=== PATIENT | female | born 1945 | race Caucasian/White ===

== ENCOUNTER → 2018-08-22 10:44 | Outpatient (CLI) | payer MEDICARE, OTHER, SELFPAY ==
--- NOTE | 2018-08-22 | DI.MG.S_ITS ---
BILATERAL DIGITAL SCREENING MAMMOGRAM 3D/2D WITH CAD: 08/22/2018 CLINICAL: Routine screening. Personal history of breast cancer. Comparison is made to exams dated: 07/24/2017 mammogram, 11/16/2016 mammogram, and 04/24/2016 mammogram - [facility]. The tissue of both breasts is heterogeneously dense. This may lower the sensitivity of mammography. Current study was also evaluated with a Computer Aided Detection (CAD) system. There are benign post operative findings in the left breast. There also are benign calcifications in both breasts. No significant masses, calcifications, or other findings are seen in either breast. There has been no significant interval change. IMPRESSION: There is no mammographic evidence of malignancy. A 1 year screening mammogram is recommended. This exam was interpreted at Station ID: [id number]. NOTE: For mammograms, a report in lay terms will be sent to the patient. Approximately 15% of breast malignancies will not be visualized mammographically. In the management of a palpable breast mass, a negative mammogram must not discourage biopsy of a clinically suspicious lesion. Electronically Signed By: Dakotah donahue/tad:08/22/2018 17:16:07 copy to: Tania Centeno letter sent: Normal Exam ACR BI-RADS Category 2: Benign Finding(s) 3342F
== END ==
PROVIDERS: Family Provider Surgery; PCP Family Medicine; Visit Provider Family Medicine
DX: Z12.31 Encounter for screening mammogram for malignant neoplasm of breast (principal); Z85.3 Personal history of malignant neoplasm of breast
CPT/HCPCS: 77063; 77067

== ENCOUNTER 2019-02-02 10:23 | Emergency (ER) | payer MEDICARE, OTHER, SELFPAY ==
[2019-02-02 10:40] VITALS: BP 144/72; PULSE 71; RESP 20; TEMP 36.8; O2SAT 95; BMI 37.9
[2019-02-02 11:05] VITALS: BP 129/69; PULSE 63; O2SAT 91
--- NOTE | 2019-02-02 11:22 | PC.NURSE ---
On Day 5 of Cipro for diverticulitis flair up. States the LLQ pain in abdomen has improved, but the pain in her right low back/hip has worsened. No point tenderness in the abdomen, bowel sounds are active, abdomen is soft. Diarrhea from diverticulitis is improving. Denies urinary symptoms. Having spasms in the right low back/hip area that cause some numbness in the right groin area intermittently. Walking with cane secondary to pain.
[2019-02-02 12:00] VITALS: BP 132/68
[2019-02-02 12:51] LABS: Add Manual Diff / Slide Review NO; Basophils Absolute Auto 0 /uL (0-100); Basophils Percent Auto 0.6 % (0-2); Eosinophils Absolute Auto 100 /uL (0-450); Eosinophils Percent Auto 1.4 % (2-4); Hematocrit 42.8 % (36-46); Hemoglobin 14.3 g/dL (12.0-16.0); Lymphocytes Absolute Auto 900 /uL (1100-4500); Mean Corpuscular HGB Conc 33.5 % (30-36); Mean Corpuscular Volume 89.4 fL (80-100); Monocytes Absolute Auto 500 /uL (0-900); Monocytes Percent Auto 8.2 % (3-14); Neutrophils Absolute Auto 4300 /uL (1500-7000); Neutrophils Percent Auto 74.8 % (50-75); Platelet Count 148 X10^3/uL (150-400); Red Blood Cell Count 4.79 X10^6/uL (4.0-5.2); Red Cell Distribution Width 14.1 % (11.6-14.8); White Blood Cell Count 5.7 X10^3/uL (4.5-11.0)
[2019-02-02] MEDS: KETOROLAC 60 MG/2 ML VIAL 15 MG IV (13:02)
[2019-02-02] MEDS: HYDROMORPHONE 1 MG INJ IV (13:02)
[2019-02-02] MEDS: SODIUM CHLORIDE 0.9% 1,000 ML 1000 ML IV (13:02)
[2019-02-02 13:10] LABS: Alanine Aminotransferase 42 IU/L (9-52); Albumin 3.8 g/dL (3.5-5.0); Albumin Globulin Ratio 1.4 (1.0-2.8); Alkaline Phosphatase 55 U/L (38-126); Aspartate Aminotransferase 33 IU/L (14-36); Bilirubin Total 0.4 mg/dL (0.2-1.3); Blood Urea Nitrogen 20 mg/dL (7-17); Calcium 9.2 mg/dL (8.4-10.2); Carbon Dioxide 29 mmol/L (22-32); Chloride 104 mmol/L (98-107); Estimated Glomerular Filt Rate 54.1 mL/min (>60); Globulin 2.7 g/dL (1.7-4.1); Glucose 99 mg/dL (80-110); HEMOLYSIS < 15 (0-50); Potassium 4.1 mmol/L (3.4-5.1); Sodium 139 mmol/L (137-145); Total Protein 6.5 g/dL (6.3-8.2)
[2019-02-02 13:18] VITALS: BP 162/66; PULSE 57; O2SAT 93
--- NOTE | 2019-02-02 13:35 | DI.CT.S_ITS ---
PROCEDURE: CT ABDOMEN PELVIS W CON INDICATIONS: abdominal pain TECHNIQUE: After the administration of intravenous contrast, 5 mm thick sections acquired from the diaphragm to the symphysis. 5 mm coronal and sagittal reformats were acquired. For radiation dose reduction, the following was used: automated exposure control, adjustment of mA and/or kV according to patient size. COMPARISON: None. FINDINGS: Image quality: Excellent. ABDOMEN: Lung bases: Lung bases are clear. Heart size is normal. Solid organs: Liver is normal in size and enhancement. Water density liver cysts are seen. Diffuse fatty liver infiltration is noted. Gallbladder has been removed. Biliary system is non dilated. Pancreas enhances normally. Spleen is normal in size and enhancement. No adrenal nodules. Kidneys demonstrate normal size and enhancement, without hydronephrosis. Peritoneum and bowel: A lap band can be seen. Bowel loops demonstrate normal wall thickness and caliber. No free fluid or air. Diverticulosis is seen, without findings of active diverticulitis. Nodes and vessels: No retroperitoneal or mesenteric adenopathy by size criteria. Aorta and inferior vena cava are normal in size. Miscellaneous: A mild periumbilical hernia is seen, containing fat. PELVIS: Genitourinary: Bladder wall thickness is normal. This patient is status post hysterectomy. No adnexal masses are seen. Miscellaneous: No inguinal hernias or adenopathy. Bones: No suspicious bony lesions. No vertebral body compression fractures. Lower lumbar spine degenerative changes are seen elsewhere. IMPRESSION: No imaging explanation is found for this patient's presenting history of abdominal pain. Lap band surgery can be seen. Incidental note is made of: Fatty liver infiltration Liver cysts Cholecystectomy Fat-containing periumbilical hernia. Hysterectomy Diverticulosis is seen, without findings of active diverticulitis. Dictated by: Yossi Pineda M.D. on 02/02/2019 at 13:24 Approved by: Yossi Pineda M.D. on 02/02/2019 at 13:28
[2019-02-02 14:34] VITALS: BP 129/59; PULSE 53; RESP 16; O2SAT 93
[2019-02-02 15:38] VITALS: BP 130/66; PULSE 58; RESP 15; O2SAT 93
--- NOTE | 2019-02-04 07:08 | ED.BACK ---
HPI - Back Pain/Injury General Chief Complaint: Back Pain/Injury Stated Complaint: Low back pain,wrapping around to hip and abd Time Seen by Provider: 02/02/19 11:20 Source: patient Mode of arrival: ambulatory Limitations: no limitations History of Present Illness HPI Narrative: Patient presents the emergency department complaining of back pain radiating to her right hip and lower quadrant that has developed over the last week. Patient states she was being treated with antibiotics for presumptive diverticulitis, which she has had before, after developing lower abdominal pain and diarrhea. Patient states that the symptoms of the diverticulitis resolved with antibiotics, but that the back pain developed gradually over the next few days afterward. Patient states that she just has pain in her low back when she is laying down, and this feels like the arthritis pain she has had before. However, when she gets up and around, pain becomes much more intense and she feels it in her right hip, inguinal area, and right lower quadrant. Patient states she is concerned because she has never had pain that is this intense associated with her arthritis. Patient states that right now, her pain is about a 2/10. However when she begins moving, it becomes a 7 of 10. Patient denies fevers. No back injury. She has not been doing any repetitive movements or heavy yd or house work recently. No heavy lifting. Patient states that otherwise she feels fine and does not feel ill in any other way. Patient denies dysuria. No nausea or vomiting. No other complaints at this time. Related Data Home Medications Medication Instructions Recorded Confirmed bupropion HCl [Wellbutrin SR] 150 mg PO DAILY 01/22/19 01/22/19 cholecalciferol (vitamin D3) 1,000 unit PO DAILY 01/22/19 01/22/19 [Vitamin D3] diltiazem HCl 120 mg PO DAILY 01/22/19 01/22/19 lisinopril 20 mg DAILY 01/22/19 01/22/19 multivitamin 1 cap PO DAILY 01/22/19 01/22/19 sertraline 200 mg PO DAILY 01/22/19 01/22/19 Previous Rx's Medication Instructions Recorded tamoxifen 20 mg PO QDAY #90 tab 11/05/17 hydrocodone-acetaminophen 1 tab PO Q4-6H PRN #14 tab 02/02/19 Allergies Allergy/AdvReac Type Severity Reaction Status Date / Time bisoprolol [From ZIAC] Allergy Intermediate ANXIOUS, Verified 02/02/19 10:40 PALPITATIONS hydrochlorothiazide Allergy Intermediate ANXIOUS, Verified 02/02/19 10:40 [From ZIAC] PALPITATIONS Review of Systems Constitutional Denies chills, Denies fever(s), Denies lethargy and Denies weakness Eyes Denies change in vision, Denies eye discharge, Denies irritation and Denies loss of vision ENT Ears, Nose, Mouth, and Throat: Denies change in voice, Denies neck pain and Denies sore throat Cardiovascular Denies chest pain, Denies irregular heart rhythm, Denies lightheadedness, Denies palpitations, Denies dyspnea, Denies dyspnea on exertion and Denies orthopnea Respiratory Denies cough, Denies dyspnea, Denies dyspnea on exertion and Denies wheezing Gastrointestinal Gastrointestinal: Denies abdominal pain, Denies change in bowel habits, Denies diarrhea, Denies nausea and Denies vomiting Genitourinary Denies hematuria, Denies flank pain, Denies urinary incontinence and Denies urinary urgency Musculoskeletal Denies neck pain Comments: Back pain Integumentary/Breasts Denies pruritus, Denies erythema, Denies rash and Denies wounds Neurologic Denies confusion, Denies loss of vision and Denies weakness Psychiatric Denies anxiety, Denies confusion, Denies depression, Denies homicidal ideation and Denies suicidal ideation Endocrine Denies palpitations Hematologic/Lymphatic Denies easy bruising Allergic/Immunologic Denies wheezing [facility] Medical History Diverticulitis (Acute) Arthritis (Acute) Back pain (Acute) 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) Breast mass, left (Acute) Social History Smoking Status: Never smoker Social History Smoking Status: Never smoker Exam Initial Vital Signs Initial Vital Signs: Vital Signs Temperature 98.3 F 02/02/19 10:40 Pulse Rate 71 02/02/19 10:40 Respiratory Rate 20 02/02/19 10:40 Blood Pressure 144/72 H 02/02/19 10:40 Pulse Oximetry 95 02/02/19 10:40 Const General: cooperative and well developed Nutritional Appearance: well nourished Orientation: alert, awake, oriented x3 and not confused [facility] Head: normocephalic and atraumatic Ears: external ears normal and TM's normal bilaterally Nose: external nose normal and No nasal discharge Face and sinus: sinuses nontender, face symmetric, no sinus tenderness and No dry mucous membranes Mouth: oral mucosae normal and moist mucous membranes Teeth and gingiva: dentition normal Throat: tonsils normal and uvula midline Eyes General: appearance normal, both eyes and all related structures Eyelids: eyelids normal Conjunctivae: conjunctivae normal Sclera: sclerae normal Pupils: PERRL EOM: EOM intact bilaterally Neck Neck: normal visual inspection, trachea midline, No lymphadenopathy, No midline deformity and No JVD Lymphatic: No lymphedema Chest Chest: normal inspection of the chest Resp Effort & Inspection: normal respiratory effort, able to speak in complete sentences, no respiratory distress and no use of accessory muscles Auscultation: clear to auscultation bilaterally, no rales, no rhonchi and no wheezes Cardio Rate: regular rate Rhythm: regular rhythm Heart Sounds: no click, no gallops, no murmurs and no rubs Pulses: normal peripheral pulses GI Inspection: non-distended Palpation: soft, no hepatosplenomegaly, No guarding, No pulsatile mass and tender (Mild, right lower quadrant, no rebound or guarding) Auscultation: normal bowel sounds Back/Spine/Pelvis Back: No CVA tenderness Cervical Spine: cervical ROM normal and No pain with cervical ROM Thoracic/Lumbar Spine: thoracic and lumbar spine normal to inspection Other: Patient has no tenderness or step-off any level of her spine. She has mild lumbar paraspinal muscular tenderness on the right she has palpation. Patient has no pain with range of motion of her right hip. No tenderness over the patient's inguinal ligament. Skin General: no rashes or lesions noted, No jaundice and No petechiae Neuro General: alert, oriented x3, gait normal and no focal motor deficits Speech: speech normal Extrem General: full ROM, no clubbing, cyanosis or edema, no pedal edema and no calf tenderness Psych Appearance: well kempt Mental Status: mental status grossly normal Attitude: cooperative Thought Content: normal and suicidality Judgment: judgment good Course Course Narrative: Patient was treated symptomatically for her back pain. Given her recent history diverticulitis with the right lower quadrant tenderness, as well as the unusual intensity of pain, I did feel the patient should be worked up for her abdominal pain. CBC and CT were both unremarkable. I discussed with the patient that most likely, her pain is due to a flare-up of her arthritis. My suspicion for spinal infection is low at this time, as patient is afebrile, her CBC is normal, and CT scan does not show any concerning findings. We have discussed symptomatic management at home, as well as the usual indications for return. Orders Ordered: Discontinued Medications Hydromorphone HCl (Dilaudid) 1 mg IV NOW ONE Stop: 02/02/19 12:34 Last Admin: 02/02/19 13:02 Dose: 1 mg Sodium Chloride (Normal Saline 0.9%) 1,000 mls @ 1,000 mls/hr IV BOLUS ONE Stop: 02/02/19 13:55 Last Infusion: 02/02/19 15:30 Dose: 0 mls/hr Infusion: 02/02/19 14:06 Dose: 1,000 mls/hr Infusion: 02/02/19 13:45 Dose: 0 mls/hr Admin: 02/02/19 13:02 Dose: 1,000 mls/hr Ketorolac Tromethamine (Toradol) 15 mg IV NOW ONE Stop: 02/02/19 12:35 Last Admin: 02/02/19 13:02 Dose: 15 mg MDM - Back Pain/Injury Medical Records Attestation: I reviewed the patient's medical records. Lab Data Attestation: I reviewed the patient's lab results. Result diagrams: 02/02/19 12:43 02/02/19 12:43 Lab Results 02/02/19 02/02/19 Range/Units 12:43 12:43 WBC 5.7 (4.5-11.0) X10^3/uL RBC 4.79 (4.0-5.2) X10^6/uL Hgb 14.3 (12.0-16.0) g/dL Hct 42.8 (36-46) % MCV 89.4 (80-100) fL MCH 30.0 (26-34) PG MCHC 33.5 (30-36) % RDW 14.1 (11.6-14.8) % Plt Count 148 L (150-400) X10^3/uL Neut % (Auto) 74.8 (50-75) % Lymph % (Auto) 15.0 L (25-40) % [place] % (Auto) 8.2 (3-14) % Eos % (Auto) 1.4 L (2-4) % Baso % (Auto) 0.6 (0-2) % Neut # (Auto) 4300 (6092-0903) /uL Lymph # (Auto) 900 L (0742-3080) /uL [place] # (Auto) 500 (0-900) /uL Eos # (Auto) 100 (0-450) /uL Baso # (Auto) 0 (0-100) /uL Sodium 139 (137-145) mmol/L Potassium 4.1 (3.4-5.1) mmol/L Chloride 104 (98-107) mmol/L Carbon Dioxide 29 (22-32) mmol/L BUN 20 H (7-17) mg/dL Creatinine 1.00 (0.52-1.04) mg/dL Estimated GFR 54.1 L (>60) mL/min BUN/Creatinine Ratio 20.0 (6-22) Glucose 99 (80-110) mg/dL Calcium 9.2 (8.4-10.2) mg/dL Total Bilirubin 0.4 (0.2-1.3) mg/dL AST 33 (14-36) IU/L ALT 42 (9-52) IU/L Alkaline Phosphatase 55 (38-126) U/L Total Protein 6.5 (6.3-8.2) g/dL Albumin 3.8 (3.5-5.0) g/dL Globulin 2.7 (1.7-4.1) g/dL Albumin/Globulin Ratio 1.4 (1.0-2.8) Urine Dip Bedside Urine Glucose Negative Bedside Urine Bilirubin - Negative Bedside Urine Ketone - Negative Urine Specific [place] 1.015 Bedside Urine Occult Blood - Negative Bedside Urine pH 6.0 Bedside Urine Protein - Negative Bedside Urine Urobilinogen - Negative Bedside Urine Nitrite - Negative Bedside Urine Leukocytes - Negative Esterase Imaging Data CT scan - abdomen: Radiologist's impression: [address] [address] [address] Scan Report Signed Patient: Lennie Carter [facility]#: [id number] : 4Acct:[id number] Age/Sex: 73 / FDate of Service: 02/02/19 Loc: ED Accession Number: [id number] Procedure: CT abdomen pelvis w con Ordering Provider: Zoraida Blair MD PROCEDURE: CT ABDOMEN PELVIS W CON INDICATIONS: abdominal pain TECHNIQUE: After the administration of intravenous contrast, 5 mm thick sections acquired from the diaphragm to the symphysis. 5 mm coronal and sagittal reformats were acquired. For radiation dose reduction, the following was used: automated exposure control, adjustment of mA and/or kV according to patient size. COMPARISON: None. FINDINGS: Image quality: Excellent. ABDOMEN: Lung bases: Lung bases are clear. Heart size is normal. Solid organs: Liver is normal in size and enhancement. Water density liver cysts are seen. Diffuse fatty liver infiltration is noted. Gallbladder has been removed. Biliary system is non dilated. Pancreas enhances normally. Spleen is normal in size and enhancement. No adrenal nodules. Kidneys demonstrate normal size and enhancement, without hydronephrosis. Peritoneum and bowel: A lap band can be seen. Bowel loops demonstrate normal wall thickness and caliber. No free fluid or air. Diverticulosis is seen, without findings of active diverticulitis. Nodes and vessels: No retroperitoneal or mesenteric adenopathy by size criteria. Aorta and inferior vena cava are normal in size. Miscellaneous: A mild periumbilical hernia is seen, containing fat. PELVIS: Genitourinary: Bladder wall thickness is normal. This patient is status post hysterectomy. No adnexal masses are seen. Miscellaneous: No inguinal hernias or adenopathy. Bones: No suspicious bony lesions. No vertebral body compression fractures. Lower lumbar spine degenerative changes are seen elsewhere. IMPRESSION: No imaging explanation is found for this patient's presenting history of abdominal pain. Lap band surgery can be seen. Incidental note is made of: Fatty liver infiltration Liver cysts Cholecystectomy Fat-containing periumbilical hernia. Hysterectomy Diverticulosis is seen, without findings of active diverticulitis. Dictated by: Yossi Pineda M.D. on 02/02/2019 at 13:24 Approved by: Yossi Pineda M.D. on 02/02/2019 at 13:28 Discharge Plan Departure Patient Disposition: Home Clinical Impression: Arthritis Back pain Qualifiers: Back pain location: low back pain Chronicity: acute Back pain laterality: right Sciatica presence: without sciatica Qualified Code(s): M54.5 - Low back pain Discharge Date/Time: 02/02/19 15:39 Interventions: ED Discharge Assessment Last Done: 02/02/19 15:38 Instructions: DI for Low Back Pain Activity Restrictions/Additional Instructions: Your CT scan looks good. There is no evidence of diverticulitis or any other serious or emergent cause of your symptoms. Your pain is most likely secondary to your back arthritis. You may take ibuprofen as needed for this. If you need stronger pain control, please use the Vicodin that has been prescribed. If you continue to have issues beyond this, please follow up with your primary care physician. Prescriptions: New hydrocodone-acetaminophen 5-325 mg tablet 1 tab PO Q4-6H PRN (Reason: pain) Qty: 14 RF: 0 No Action tamoxifen 20 MG tablet 20 mg PO QDAY Qty: 90 RF: 2 lisinopril 20 mg 20 mg DAILY RF: 0 diltiazem HCl 120 mg Tablet 120 mg PO DAILY RF: 0 bupropion HCl [Wellbutrin SR] 150 mg Tablet Sustained-Release 12 Hr 150 mg PO DAILY RF: 0 sertraline 100 mg Tablet 200 mg PO DAILY RF: 0 multivitamin Capsule 1 cap PO DAILY RF: 0 cholecalciferol (vitamin D3) [Vitamin D3] 1,000 unit Tablet 1,000 unit PO DAILY RF: 0 Referrals: Benigno Kidd MD [Primary Care Provider] -
--- NOTE | 2019-02-04 07:16 | ED_ITS ---
HPI - Back Pain/Injury General Chief Complaint: Back Pain/Injury Stated Complaint: Low back pain,wrapping around to hip and abd Time Seen by Provider: 02/02/19 11:20 Source: patient Mode of arrival: ambulatory Limitations: no limitations History of Present Illness HPI Narrative: Patient presents the emergency department complaining of back pain radiating to her right hip and lower quadrant that has developed over the last week. Patient states she was being treated with antibiotics for presumptive diverticulitis, which she has had before, after developing lower abdominal pain and diarrhea. Patient states that the symptoms of the diverticulitis resolved with antibiotics, but that the back pain developed grad ually over the next few days afterward. Patient states that she just has pain in her low back when she is laying down, and this feels like the arthritis pain she has had before. However, when she gets up and around, pain becomes much more intense and she feels it in her right hip, inguinal area, and right lower quadrant. Patient states she is concerned because she has never had pain that is this intense associated with her arthritis. Patient states that right now, her pain is about a 2/10. However when she begins moving, it becomes a 7 of 10. Patient denies fevers. No back injury. She has not been doing any repetitive movements or heavy yd or house work recently. No heavy lifting. Patient states that otherwise she feels fine and does not feel ill in any other way. Patient denies dysuria. No nausea or vomiting. No other complaints at this time. Related Data Home Medications Medication Instructions Recorded Confirmed bupropion HCl [Wellbutrin SR] 150 mg PO DAILY 01/22/19 01/22/19 cholecalciferol (vitamin D3) 1,000 unit PO DAILY 01/22/19 01/22/19 [Vitamin D3] diltiazem HCl 120 mg PO DAILY 01/22/19 01/22/19 lisinopril 20 mg DAILY 01/22/19 01/22/19 multivitamin 1 cap PO DAILY 01/22/19 01/22/19 sertraline 200 mg PO DAILY 01/22/19 01/22/19 Previous Rx's Medication Instructions Recorded tamoxifen 20 mg PO QDAY #90 tab 11/05/17 hydrocodone-acetaminophen 1 tab PO Q4-6H PRN #14 tab 02/02/19 Allergies Allergy/AdvReac Type Severity Reaction Status Date / Time bisoprolol [From ZIAC] Allergy Intermediate ANXIOUS, Verified 02/02/19 10:40 PALPITATIONS hydrochlorothiazide Allergy Intermediate ANXIOUS, Verified 02/02/19 10:40 [From ZIAC] PALPITATIONS Review of Systems Constitutional Denies chills, Denies fever(s), Denies lethargy and Denies weakness Eyes Denies change in vision, Denies eye discharge, Denies irritation and Denies loss of vision ENT Ears, Nose, Mouth, and Throat: Denies change in voice, Denies neck pain and Denies sore throat Cardiovascular Denies chest pain, Denies irregular heart rhythm, Denies lightheadedness, Denies palpitations, Denies dyspnea, Denies dyspnea on exertion and Denies orthopnea Respiratory Denies cough, Denies dyspnea, Denies dyspnea on exertion and Denies wheezing Gastrointestinal Gastrointestinal: Denies abdominal pain, Denies change in bowel habits, Denies diarrhea, Denies nausea and Denies vomiting Genitourinary Denies hematuria, Denies flank pain, Denies urinary incontinence and Denies urinary urgency Musculoskeletal Denies neck pain Comments: Back pain Integumentary/Breasts Denies pruritus, Denies erythema, Denies rash and Denies wounds Neurologic Denies confusion, Denies loss of vision and Denies weakness Psychiatric Denies anxiety, Denies confusion, Denies depression, Denies homicidal ideation and Denies suicidal ideation Endocrine Denies palpitations Hematologic/Lymphatic Denies easy bruising Allergic/Immunologic Denies wheezing [facility] Medical History Diverticulitis (Acute) Arthritis (Acute) Back pain (Acute) 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) Breast mass, left (Acute) Social History Smoking Status: Never smoker Social History Smoking Status: Never smoker Exam Initial Vital Signs Initial Vital Signs: Vital Signs Temperature 98.3 F 02/02/19 10:40 Pulse Rate 71 02/02/19 10:40 Respiratory Rate 20 02/02/19 10:40 Blood Pressure 144/72 H 02/02/19 10:40 Pulse Oximetry 95 02/02/19 10:40 Const General: cooperative and well developed Nutritional Appearance: well nourished Orientation: alert, awake, oriented x3 and not confused [facility] [place] Head: normocephalic and atraumatic Ears: external ears normal and TM's normal bilaterally Nose: external nose normal and No nasal discharge Face and sinus: sinuses nontender, face symmetric, no sinus tenderness and No dry mucous membranes Mouth: oral mucosae normal and moist mucous membranes Teeth and gingiva: dentition normal Throat: tonsils normal and uvula midline Eyes General: appearance normal, both eyes and all related structures Eyelids: eyelids normal Conjunctivae: conjunctivae normal Sclera: sclerae normal Pupils: PERRL EOM: EOM intact bilaterally Neck Neck: normal visual inspection, trachea midline, No lymphadenopathy, No midline deformity and No JVD Lymphatic: No lymphedema Chest Chest: normal inspection of the chest Resp Effort & Inspection: normal respiratory effort, able to speak in complete sentences, no respiratory distress and no use of accessory muscles Auscultation: clear to auscultation bilaterally, no rales, no rhonchi and no wheezes Cardio Rate: regular rate Rhythm: regular rhythm Heart Sounds: no click, no gallops, no murmurs and no rubs Pulses: normal peripheral pulses GI Inspection: non-distended Palpation: soft, no hepatosplenomegaly, No guarding, No pulsatile mass and tender (Mild, right lower quadrant, no rebound or guarding) Auscultation: normal bowel sounds Back/Spine/Pelvis Back: No CVA tenderness Cervical Spine: cervical ROM normal and No pain with cervical ROM Thoracic/Lumbar Spine: thoracic and lumbar spine normal to inspection Other: Patient has no tenderness or step-off any level of her spine. She has mild lumbar paraspinal muscular tenderness on the right she has palpation. Patient has no pain with range of motion of her right hip. No tenderness over the patient's inguinal ligament. Skin General: no rashes or lesions noted, No jaundice and No petechiae Neuro General: alert, oriented x3, gait normal and no focal motor deficits Speech: speech normal Extrem General: full ROM, no clubbing, cyanosis or edema, no pedal edema and no calf tenderness Psych Appearance: well kempt Mental Status: mental status grossly normal Attitude: cooperative Thought Content: normal and suicidality Judgment: judgment good Course Course Narrative: Patient was treated symptomatically for her back pain. Given her recent history diverticulitis with the right lower quadrant tenderness, as well as the unusual intensity of pain, I did feel the patient should be worked up for her abdominal pain. CBC and CT were both unremarkable. I discussed with the patient that most likely, her pain is due to a flare-up of her arthritis. My suspicion for spinal infection is low at this time, as patient is afebrile, her CBC is normal, and CT scan does not show any concerning findings. We have discussed symptomatic management at home, as well as the usual indications for return. Orders Ordered: Discontinued Medications Hydromorphone HCl (Dilaudid) 1 mg IV NOW ONE Stop: 02/02/19 12:34 Last Admin: 02/02/19 13:02 Dose: 1 mg Sodium Chloride (Normal Saline 0.9%) 1,000 mls @ 1,000 mls/hr IV BOLUS ONE Stop: 02/02/19 13:55 Last Infusion: 02/02/19 15:30 Dose: 0 mls/hr Infusion: 02/02/19 14:06 Dose: 1,000 mls/hr Infusion: 02/02/19 13:45 Dose: 0 mls/hr Admin: 02/02/19 13:02 Dose: 1,000 mls/hr Ketorolac Tromethamine (Toradol) 15 mg IV NOW ONE Stop: 02/02/19 12:35 Last Admin: 02/02/19 13:02 Dose: 15 mg MDM - Back Pain/Injury Medical Records Attestation: I reviewed the patient's medical records. Lab Data Attestation: I reviewed the patient's lab results. Result diagrams: 02/02/19 12:43 02/02/19 12:43 Lab Results 02/02/19 02/02/19 Range/Units 12:43 12:43 WBC 5.7 (4.5-11.0) X10^3/uL RBC 4.79 (4.0-5.2) X10^6/uL Hgb 14.3 (12.0-16.0) g/dL Hct 42.8 (36-46) % MCV 89.4 (80-100) fL MCH 30.0 (26-34) PG MCHC 33.5 (30-36) % RDW 14.1 (11.6-14.8) % Plt Count 148 L (150-400) X10^3/uL Neut % (Auto) 74.8 (50-75) % Lymph % (Auto) 15.0 L (25-40) % [place] % (Auto) 8.2 (3-14) % Eos % (Auto) 1.4 L (2-4) % Baso % (Auto) 0.6 (0-2) % Neut # (Auto) 4300 (2453-4573) /uL Lymph # (Auto) 900 L (3049-5790) /uL [place] # (Auto) 500 (0-900) /uL Eos # (Auto) 100 (0-450) /uL Baso # (Auto) 0 (0-100) /uL Sodium 139 (137-145) mmol/L Potassium 4.1 (3.4-5.1) mmol/L Chloride 104 (98-107) mmol/L Carbon Dioxide 29 (22-32) mmol/L BUN 20 H (7-17) mg/dL Creatinine 1.00 (0.52-1.04) mg/dL Estimated GFR 54.1 L (>60) mL/min BUN/Creatinine Ratio 20.0 (6-22) Glucose 99 (80-110) mg/dL Calcium 9.2 (8.4-10.2) mg/dL Total Bilirubin 0.4 (0.2-1.3) mg/dL AST 33 (14-36) IU/L ALT 42 (9-52) IU/L Alkaline Phosphatase 55 (38-126) U/L Total Protein 6.5 (6.3-8.2) g/dL Albumin 3.8 (3.5-5.0) g/dL Globulin 2.7 (1.7-4.1) g/dL Albumin/Globulin Ratio 1.4 (1.0-2.8) Urine Dip Bedside Urine Glucose Negative Bedside Urine Bilirubin - Negative Bedside Urine Ketone - Negative Urine Specific [place] 1.015 Bedside Urine Occult Blood - Negative Bedside Urine pH 6.0 Bedside Urine Protein - Negative Bedside Urine Urobilinogen - Negative Bedside Urine Nitrite - Negative Bedside Urine Leukocytes - Negative Esterase Imaging Data CT scan - abdomen: Radiologist's impression: [address] [address] [address] Scan Report Signed [id number] : 4Acct:[id number] Age/Sex: 73 / FDate of Service: 02/02/19 Loc: ED Accession Number: [id number] Procedure: CT abdomen pelvis w con Ordering Provider: Zoraida Blair MD PROCEDURE: CT ABDOMEN PELVIS W CON INDICATIONS: abdominal pain TECHNIQUE: After the administration of intravenous contrast, 5 mm thick sections acquired from the diaphragm to the symphysis. 5 mm coronal and sagittal reformats were acquired. For radiation dose reduction, the following was used: automated exposure control, adjustment of mA and/or kV according to patient size. COMPARISON: None. FINDINGS: Image quality: Excellent. ABDOMEN: Lung bases: Lung bases are clear. Heart size is normal. Solid organs: Liver is normal in size and enhancement. Water density liver cysts are seen. Diffuse fatty liver infiltration is noted. Gallbladder has been removed. Biliary system is non dilated. Pancreas enhances normally. Spleen is normal in size and enhancement. No adrenal nodules. Kidneys demonstrate normal size and enhancement, without hydronephrosis. Peritoneum and bowel: A lap band can be seen. Bowel loops demonstrate normal wall thickness and caliber. No free fluid or air. Diverticulosis is seen, without findings of active diverticulitis. Nodes and vessels: No retroperitoneal or mesenteric adenopathy by size criteria. Aorta and inferior vena cava are normal in size. Miscellaneous: A mild periumbilical hernia is seen, containing fat. PELVIS: Genitourinary: Bladder wall thickness is normal. This patient is status post hysterectomy. No adnexal masses are seen. Miscellaneous: No inguinal hernias or adenopathy. Bones: No suspicious bony lesions. No vertebral body compression fractures. Lower lumbar spine degenerative changes are seen elsewhere. IMPRESSION: No imaging explanation is found for this patient's presenting history of abdominal pain. Lap band surgery can be seen. Incidental note is made of: Fatty liver infiltration Liver cysts Cholecystectomy Fat-containing periumbilical hernia. Hysterectomy Diverticulosis is seen, without findings of active diverticulitis. Dictated by: Yossi Pineda M.D. on 02/02/2019 at 13:24 Approved by: Yossi Pineda M.D. on 02/02/2019 at 13:28 Discharge Plan Departure Patient Disposition: Home Clinical Impression: Arthritis Back pain Qualifiers: Back pain location: low back pain Chronicity: acute Back pain laterality: right Sciatica presence: without sciatica Qualified Code(s): M54.5 - Low back pain Discharge Date/Time: 02/02/19 15:39 Interventions: ED Discharge Assessment Last Done: 02/02/19 15:38 Instructions: DI for Low Back Pain Activity Restrictions/Additional Instructions: Your CT scan looks good. There is no evidence of diverticulitis or any other serious or emergent cause of your symptoms. Your pain is most likely secondary to your back arthritis. You may take ibuprofen as needed for this. If you need stronger pain control, please use the Vicodin that has been prescribed. If you continue to have issues beyond this, please follow up with your primary care physician. Prescriptions: New hydrocodone-acetaminophen 5-325 mg tablet 1 tab PO Q4-6H PRN (Reason: pain) Qty: 14 RF: 0 No Action tamoxifen 20 MG tablet 20 mg PO QDAY Qty: 90 RF: 2 lisinopril 20 mg 20 mg DAILY RF: 0 diltiazem HCl 120 mg Tablet 120 mg PO DAILY RF: 0 bupropion HCl [Wellbutrin SR] 150 mg Tablet Sustained-Release 12 Hr 150 mg PO DAILY RF: 0 sertraline 100 mg Tablet 200 mg PO DAILY RF: 0 multivitamin Capsule 1 cap PO DAILY RF: 0 cholecalciferol (vitamin D3) [Vitamin D3] 1,000 unit Tablet 1,000 unit PO DAILY RF: 0 Referrals: Benigno Kidd MD [Primary Care Provider] -
== END 2019-02-02 15:39 | disposition home or self-care (01) ==
PROVIDERS: Emergency Provider Emergency Medicine; Family Provider Surgery; PCP Family Medicine
DX: M54.5 Low back pain (principal); R10.9 Unspecified abdominal pain; M46.90 Unspecified inflammatory spondylopathy, site unspecified
CPT/HCPCS: 36591; 74177; 80053; 81003; 85025; 96361; 96374; 96375; 99284; J1170; J1885; Q9967

== ENCOUNTER → 2019-07-24 12:33 | Outpatient (CLI) | payer MEDICARE, OTHER, SELFPAY ==
--- NOTE | 2019-07-24 | DI.RAD.S_ITS ---
PROCEDURE: XR KNEE LT 3V INDICATIONS: LEFT KNEE PAIN TECHNIQUE: Pre-views of the knee were acquired. COMPARISON: None. FINDINGS: Bones: No fractures or dislocations. No suspicious bony lesions. There is mild degenerative joint disease in the medial femorotibial compartment and patellofemoral compartment. Soft tissues: Small joint effusion. No suspicious soft tissue calcifications. IMPRESSION: Mild degenerative joint disease. Small knee joint effusion. Dictated by: Morales Silvestre M.D. on 07/24/2019 at 13:11 Approved by: Morales Silvestre M.D. on 07/24/2019 at 13:11
== END ==
PROVIDERS: PCP Family Medicine; Visit Provider Family Medicine
DX: M25.562 Pain in left knee (principal); M17.12 Unilateral primary osteoarthritis, left knee; M25.462 Effusion, left knee
CPT/HCPCS: 73562

== ENCOUNTER → 2019-09-26 10:48 | Outpatient (CLI) | payer MEDICARE, OTHER, SELFPAY ==
--- NOTE | 2019-09-26 10:51 | DI.MG.S_ITS ---
BILATERAL DIGITAL SCREENING MAMMOGRAM 3D/2D WITH CAD POST LUMPECTOMY: 09/26/2019 CLINICAL: Routine screening. Family history of breast cancer. Personal history of breast cancer. Comparison is made to exams dated: 08/22/2018 mammogram, 07/24/2017 mammogram, and 11/16/2016 mammogram - [facility]. The tissue of both breasts is heterogeneously dense. This may lower the sensitivity of mammography. Current study was also evaluated with a Computer Aided Detection (CAD) system. There are benign calcifications in both breasts. There also are benign post operative findings in the left breast. No significant masses, calcifications, or other findings are seen in either breast. There has been no significant interval change. IMPRESSION: There is no mammographic evidence of malignancy. A 1 year screening mammogram is recommended. This exam was interpreted at Station ID: [id number]. NOTE: For mammograms, a report in lay terms will be sent to the patient. Approximately 15% of breast malignancies will not be visualized mammographically. In the management of a palpable breast mass, a negative mammogram must not discourage biopsy of a clinically suspicious lesion. Electronically Signed By: Dakotah donahue/atd:09/26/2019 15:42:10 copy to: Lydia Yen [facility] letter sent: Normal Exam ACR BI-RADS Category 2: Benign Finding(s) 3342F
== END ==
PROVIDERS: PCP Family Medicine; Visit Provider Family Medicine
DX: Z12.31 Encounter for screening mammogram for malignant neoplasm of breast (principal); D05.12 Intraductal carcinoma in situ of left breast; Z79.810 Long term (current) use of selective estrogen receptor modulators (SERMs); Z80.3 Family history of malignant neoplasm of breast
CPT/HCPCS: 77063; 77067

== ENCOUNTER → 2020-04-09 09:34 | Outpatient (CLI) | payer MEDICARE, OTHER, SELFPAY ==
--- NOTE | 2020-04-09 09:36 | DI.US.S_ITS ---
PROCEDURE: US ABDOMEN COMPLETE INDICATIONS: DIVERTICULITIS TECHNIQUE: Real-time scanning was performed of the abdominal and retroperitoneal organs, with image documentation. COMPARISON: CT, CT ABDOMEN PELVIS WITH CONTRAST, 07/09/2017, 13:57. [facility], CT, CT ABDOMEN PELVIS W CON, 02/02/2019, 13:39. FINDINGS: Liver: Normal size. Increased in echogenicity. Small hepatic cysts. A larger cyst in the medial right lobe measures 2.1 cm. Gallbladder: Surgically absent. Biliary ducts: Intrahepatic bile ducts are non-dilated. Extrahepatic bile duct caliber measures 9 mm. Normal is 6-7 mm or less in diameter, or 10 mm or less post-cholecystectomy. Pancreas: Visualized portions of the pancreas are sonographically normal. Spleen: Spleen is normal in size and homogeneous in echotexture. Hypoechoic focus with vascularity measuring 1.3 cm. This most likely represents a benign hemangioma and is unchanged compared to prior CT from 2017. Kidneys: Kidneys are normal in size and echotexture. Right kidney measures 10.8 cm long; left kidney measures 12 cm long. A somewhat lobular contour of the left kidney. No hydronephrosis or nephrolithiasis. No solid masses. Aorta: Visualized aorta is normal in caliber at less than 3 cm. Iliacs: Not well seen. IVC: Intrahepatic inferior vena cava is patent. Miscellaneous: No obvious free abdominal fluid. IMPRESSION: 1. No acute abnormality identified. 2. Post cholecystectomy. 3. Benign hepatic cysts. 4. Hypoechoic focus in the spleen measuring 1.3 cm is most compatible with a benign hemangioma. If clinically indicated consider CT abdomen pelvis with IV contrast to evaluate the left lower quadrant for diverticulitis. Dictated by: Singh Tao M.D. on 04/09/2020 at 10:42 Approved by: Singh Tao M.D. on 04/09/2020 at 10:48
== END ==
PROVIDERS: PCP Family Medicine; Referring Provider Family Medicine; Visit Provider Family Medicine
DX: K57.32 Diverticulitis of large intestine without perforation or abscess without bleeding (principal); K76.89 Other specified diseases of liver; Z90.49 Acquired absence of other specified parts of digestive tract
CPT/HCPCS: 76700

== ENCOUNTER → 2020-04-16 13:24 | Outpatient (CLI) | payer MEDICARE, OTHER, SELFPAY ==
--- NOTE | 2020-04-16 | DI.CT.S_ITS ---
PROCEDURE: CT ABDOMEN PELVIS W CON INDICATIONS: Diverticulitis of large intestine without perforat TECHNIQUE: After the administration of oral and intravenous contrast, 5 mm thick sections acquired from the diaphragms to the symphysis. 5 mm thick coronal and sagittal reformats were performed. For radiation dose reduction, the following was used: automated exposure control, adjustment of mA and/or kV according to patient size. COMPARISON: [facility], CT, CT ABDOMEN PELVIS W CON, 02/02/2019, 13:39. FINDINGS: Image quality: Excellent. ABDOMEN: Lung bases: Lung bases are clear. Heart size is normal. Solid organs: Liver is normal in size and enhancement. Mild hepatic steatosis. Small low-density liver lesions are stable consistent with cysts versus hemangiomata. Gallbladder is surgically absent. Biliary system is non-dilated. Pancreas enhances normally. Spleen is normal in size and enhancement. No adrenal nodules. Kidneys are normal in size and enhancement, without hydronephrosis. Peritoneum and bowel: Laparoscopic band procedure noted. No hernia seen. Stomach, small bowel, and colon loops are normal in caliber and wall thickness. No free fluid or air. Mild sigmoid diverticulosis without evidence of diverticulitis. Nodes and vessels: No retroperitoneal or mesenteric adenopathy. Aorta and inferior vena cava are normal in caliber. Miscellaneous: Small periumbilical hernia containing fat. PELVIS: Genitourinary: Bladder wall thickness is normal. Miscellaneous: No inguinal hernias or adenopathy. Uterus is surgically absent. Bones: No suspicious bony lesions. No vertebral body compression fractures. IMPRESSION: 1. No evidence acute abdominal process. 2. Remote lap band surgery. 3. Remote hysterectomy and cholecystectomy. 4. Hepatic steatosis. 5. Mild diverticulosis. 6. Small periumbilical hernia containing fat. Dictated by: Bharathi Leyva M.D. on 04/16/2020 at 15:18 Approved by: Bharathi Leyva M.D. on 04/16/2020 at 15:23
[2020-04-16 14:03] LABS: BUN Creatinine Ratio 20.2 (6-22); Blood Urea Nitrogen 19 mg/dL (7-17); Estimated Glomerular Filt Rate 57.9 mL/min (>60)
== END ==
PROVIDERS: PCP Family Medicine; Referring Provider Family Medicine; Visit Provider Family Medicine
DX: K57.32 Diverticulitis of large intestine without perforation or abscess without bleeding (principal); K76.89 Other specified diseases of liver; K76.0 Fatty (change of) liver, not elsewhere classified; D73.4 Cyst of spleen; K42.9 Umbilical hernia without obstruction or gangrene; Z98.84 Bariatric surgery status; Z90.49 Acquired absence of other specified parts of digestive tract; Z90.710 Acquired absence of both cervix and uterus
CPT/HCPCS: 36415; 74177; 82565; 84520

== ENCOUNTER → 2020-10-06 11:14 | Outpatient (CLI) | payer MEDICARE, OTHER, SELFPAY | PROVIDERS: PCP Family Medicine; Referring Provider Internal Medicine; Visit Provider Internal Medicine | DX: D05.12 Intraductal carcinoma in situ of left breast (principal); Z53.8 Procedure and treatment not carried out for other reasons ==

== ENCOUNTER → 2020-10-21 08:56 | Outpatient (CLI) | payer MEDICARE, OTHER, SELFPAY ==
--- NOTE | 2020-10-21 | DI.US.S_ITS ---
LIMITED ULTRASOUND OF RIGHT BREAST: 10/21/2020 CLINICAL: Patient returns today to evaluate a focal asymmetry in the right breast + palpable lump. Comparison is made to exams dated: 10/21/2020 mammogram, 09/26/2019 mammogram, 08/22/2018 mammogram, and 07/24/2017 mammogram - [facility]. Real-time ultrasound of the right breast 11-12 o'clock region was performed on the area of interest. No discrete cystic or solid mass lesion identified in the area of palpable abnormality. IMPRESSION: PROBABLY BENIGN There are no abnormalities seen in the right breast to correspond with the palpable abnormalities at 11 and 12 o'clock, however, clinical followup is recommended. A follow-up left breast mammogram in 6 months is recommended to demonstrate stability of the calcifications seen on mammography. Future imaging is recommended as follows: 04/22/2021 follow-up left mammogram. This exam was interpreted at Station ID: [id number]. Electronically Signed By: Dakotah Horne M.D. ddp/:10/21/2020 11:48:13 copy to: Tania Centeno copy to: PATRICK HOUSER letter sent: Clinical Evaluation Ultrasound BI-RADS: 3 Probably benign
--- NOTE | 2020-10-21 | DI.MG.S_ITS ---
BILATERAL DIGITAL DIAGNOSTIC MAMMOGRAM 3D/2D POST LUMPECTOMY: 10/21/2020 CLINICAL: Right breast lump and pain. Comparison is made to exams dated: 09/26/2019 mammogram, 08/22/2018 mammogram, and 07/24/2017 mammogram - [facility]. The tissue of both breasts is heterogeneously dense. This may lower the sensitivity of mammography. There is irregular low density architectural distortion with an indistinct margin in the right breast at 12 o'clock anterior depth. This is not significantly changed and correlates as palpated and with surgery. There is a post-surgical scar associated with the architectural distortion. There are grouped punctate round calcifications in the left breast at 1 o'clock posterior depth. These are increased in number of calcifications and correlates with surgery. There are surgical clips, architectural distortion, a post-surgical scar, and trabecular thickening associated with the calcifications. No other significant masses or calcifications are seen in either breast. IMPRESSION: INCOMPLETE: NEEDS ADDITIONAL IMAGING EVALUATION The irregular low density architectural distortion in the right breast at 12 o'clock anterior depth is consistent with a post-surgical scar and is indeterminate. An ultrasound is recommended. The grouped punctate round calcifications in the left breast at 1 o'clock posterior depth are probably benign. A follow-up mammogram in 6 months is recommended. There is no abnormality seen in the right breast to correspond with the pain in the outer aspect, however, clinical followup is recommended. Ultrasound will be performed immediately following the current exam. This exam was interpreted at Station ID: [id number]. NOTE: For mammograms, a report in lay terms will be sent to the patient. Approximately 15% of breast malignancies will not be visualized mammographically. In the management of a palpable breast mass, a negative mammogram must not discourage biopsy of a clinically suspicious lesion. Electronically Signed By: Dakotah Horne M.D. ddp/:10/21/2020 11:46:15 copy to: Tania Centeno copy to: PATRICK FIGUEROA BI-RADS Category 0: Incomplete [id number]
== END ==
PROVIDERS: PCP Family Medicine; Referring Provider Internal Medicine; Visit Provider Internal Medicine
DX: R92.8 Other abnormal and inconclusive findings on diagnostic imaging of breast (principal); R92.1 Mammographic calcification found on diagnostic imaging of breast; N63.10 Unspecified lump in the right breast, unspecified quadrant; N64.4 Mastodynia; Z85.3 Personal history of malignant neoplasm of breast
CPT/HCPCS: 76642; 77066; G0279

== ENCOUNTER → 2021-02-10 11:39 | Outpatient (CLI) | payer MEDICARE, OTHER, SELFPAY ==
--- NOTE | 2021-02-10 11:42 | DI.RAD.S_ITS ---
PROCEDURE: XR HIP W PEL IF DONE LT 2V INDICATIONS: Low Back Pain TECHNIQUE: 2 views of the hip were acquired. COMPARISON: [facility], , HIP 2V RIGHT, 05/25/2015, 10:30. [facility], , HIP 2V RIGHT, 11/04/2013, 12:29. FINDINGS: Bones: No fractures or dislocations but there is mild to moderate narrowing of the left hip joint, without evidence of prior trauma.. No suspicious bony lesions. The visualized pelvic ring appears intact. Soft tissues: No suspicious soft tissue calcifications or masses. IMPRESSION: [id number] left hip joint osteoarthritis without trauma. Dictated by: Chava Ross M.D. on 02/10/2021 at 15:23 Approved by: Chava Ross M.D. on 02/10/2021 at 15:24
--- NOTE | 2021-02-10 11:42 | DI.RAD.S_ITS ---
PROCEDURE: XR LUMBAR SPINE 2-3V INDICATIONS: Low Back Pain TECHNIQUE: 3 views of the lumbar spine were acquired. COMPARISON: [facility], , L-SPINE 2-3 VIEWS, 05/25/2015, 10:30. FINDINGS: Bones: 5 [id number] vertebrae are present. There is normal bony alignment. No vertebral body compression fractures. No suspicious bony lesions. There are multilevel degenerative changes. Anterior osteophytes are seen at multiple levels. There is facet arthrosis from L3 through S1. The sacroiliac joints are normal. No significant disc space narrowing. Soft tissues: Overlying bowel gas pattern is normal. No suspicious soft tissue calcifications. IMPRESSION: 1. Multilevel degenerative changes. 2. 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 Dictated by: Ger López M.D. on 02/10/2021 at 18:21 Approved by: Ger López M.D. on 02/10/2021 at 18:22
== END ==
PROVIDERS: PCP Family Medicine; Referring Provider Family Medicine; Visit Provider Family Medicine
DX: M54.5 Low back pain (principal); M16.12 Unilateral primary osteoarthritis, left hip
CPT/HCPCS: 72100; 73502

== ENCOUNTER → 2021-07-27 06:44 | Outpatient (CLI) | payer MEDICARE, OTHER, SELFPAY ==
--- NOTE | 2021-07-27 | DI.US.S_ITS ---
PROCEDURE: US PERIPH VENOUS LOW EXTREM RT INDICATIONS: PAIN TECHNIQUE: Real-time imaging, as well as color and pulse Doppler interrogation, were performed of the lower extremity deep veins from the inguinal ligament to the popliteal fossa. COMPARISON: None. FINDINGS: The common femoral, femoral and popliteal veins are normally compressible, and free of intraluminal thrombus. Color and pulse Doppler demonstrate normal phasic intraluminal flow. There is normal augmentation response to distal compression maneuver. IMPRESSION: No deep venous thrombosis. Dictated by: Vanessa Kyle M.D. on 07/27/2021 at 11:58 Approved by: Vanessa Kyle M.D. on 07/27/2021 at 13:22
== END ==
PROVIDERS: PCP Family Medicine; Referring Provider Family Medicine; Visit Provider Family Medicine
DX: M79.661 Pain in right lower leg (principal)
CPT/HCPCS: 93971

== ENCOUNTER → 2022-11-28 09:22 | Outpatient (CLI) | payer MEDICARE, OTHER, SELFPAY ==
--- NOTE | 2022-11-28 | DI.MG.S_ITS ---
BILATERAL DIGITAL DIAGNOSTIC MAMMOGRAM 3D/2D SHORT-TERM FOLLOW-UP POST LUMPECTOMY: 11/28/2022 CLINICAL: Short term follow up of the left breast, due for bilateral imaging. Comparison is made to exams dated: 10/21/2020 mammogram, 09/26/2019 mammogram, and 08/22/2018 mammogram - [facility]. Both breasts are heterogeneously dense, which may obscure small masses (category c / 51-75% glandular tissue). There are grouped punctate round calcifications in the left breast at 1 o'clock posterior depth. These are not significantly changed and correlates with prior surgery. There are surgical clips, architectural distortion, a post-surgical scar, and trabecular thickening associated with the calcifications. No other significant masses, calcifications, or other findings are seen in either breast. IMPRESSION: PROBABLY BENIGN The grouped punctate round calcifications in the left breast are probably benign. A follow-up left mammogram in 6 months is recommended. Findings and recommendations were conveyed to the patient during today's evaluation. This exam was interpreted at Station ID: [id number]. NOTE: For mammograms, a report in lay terms will be sent to the patient. Approximately 15% of breast malignancies will not be visualized mammographically. In the management of a palpable breast mass, a negative mammogram must not discourage biopsy of a clinically suspicious lesion. Electronically Signed By: Cruz Berry M.D. aty/:11/28/2022 10:24:07 copy to: Tania Centeno letter sent: Followup Recommended ACR BI-RADS Category 3: Probably benign 3343F
== END ==
PROVIDERS: PCP Family Medicine; Referring Provider Family Medicine; Visit Provider Family Medicine
DX: R92.8 Other abnormal and inconclusive findings on diagnostic imaging of breast (principal); R92.1 Mammographic calcification found on diagnostic imaging of breast
CPT/HCPCS: 77066; G0279

== ENCOUNTER → 2022-12-25 15:41 | Outpatient (CLI) | payer MEDICARE, OTHER, SELFPAY ==
--- NOTE | 2022-12-25 15:42 | DI.MRI.S_ITS ---
PROCEDURE: MR HEAD/BRAIN WO CON INDICATIONS: Amnestic disorder TECHNIQUE: Non-contrast axial T1 spin echo, axial T2 fast spin echo, sagittal and axial FLAIR, coronal T2 fast spin echo, axial gradient echo, axial diffusion and ADC through the brain. COMPARISON: None. FINDINGS: Image quality: Excellent. CSF spaces: Ventricles appear symmetric in size and shape. Basal cisterns are patent. No extra-axial fluid collections. Brain: No intracranial bleeds or mass effects. There is cerebral volume loss for age. There are periventricular and deep white matter chronic small vessel ischemic changes. Brainstem appears normal. Diffusion-weighted images show no acute ischemic insults. No chronic ischemic insults. Normal intravascular flow voids are present. Skull and face: Calvarial bone marrow is normal in signal. Orbits are normal. Sinuses: Sinuses and mastoids are clear. IMPRESSION: 1. Volume loss and small vessel ischemic disease. 2. No acute process. No recent infarct. Dictated by: Boo Sultana M.D. on 12/25/2022 at 16:19 Approved by: Boo Sultana M.D. on 12/25/2022 at 16:22
== END ==
PROVIDERS: PCP Family Medicine; Referring Provider Family Medicine; Visit Provider Family Medicine
DX: F04 Amnestic disorder due to known physiological condition (principal)
CPT/HCPCS: 70551

== ENCOUNTER → 2023-06-13 12:08 | Outpatient (CLI) | payer MEDICARE, OTHER, SELFPAY ==
--- NOTE | 2023-06-13 12:11 | DI.RAD.S_ITS ---
PROCEDURE: XR FOOT RT MIN 3V INDICATIONS: PAIN IN RIGHT FOOT TECHNIQUE: 3 views of the foot were acquired. COMPARISON: [facility], , FOOT 3V RIGHT, 03/16/2014, 11:27. FINDINGS: Bones: No acute fracture or dislocation. Comminuted fracture of the 3rd proximal phalanx has healed. Moderate hallux valgus alignment with overlying soft tissue bunion on nonweightbearing view. Moderate 1st MTP and 1st through 5th IP joint space narrowing and periarticular osteophytosis. Soft tissues: No tibiotalar joint effusion. Achilles tendon appears normal. Small plantar and Achilles calcaneal enthesophytes. No soft tissue swelling or radiopaque foreign body. IMPRESSION: 1. No acute fracture or dislocation. 2. Comminuted fracture of the 3rd proximal phalanx has healed compared to radiograph dated March 16, 2014. 3. Moderate hallux valgus alignment with overlying soft tissue bunion on nonweightbearing view with 1st MTP joint osteoarthritis. 4. 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 Dictated by: Bradley Nieto M.D. on 06/13/2023 at 14:57 Approved by: Bradley Nieto M.D. on 06/13/2023 at 15:02
== END ==
PROVIDERS: PCP Family Medicine; Referring Provider Family Medicine; Visit Provider Family Medicine
DX: M19.071 Primary osteoarthritis, right ankle and foot (principal); M21.611 Bunion of right foot; M20.11 Hallux valgus (acquired), right foot; Z87.81 Personal history of (healed) traumatic fracture
CPT/HCPCS: 73630

== ENCOUNTER → 2023-06-20 11:39 | Outpatient (CLI) | payer MEDICARE, OTHER, SELFPAY ==
--- NOTE | 2023-06-20 | DI.MG.S_ITS ---
UNILATERAL LEFT DIGITAL DIAGNOSTIC MAMMOGRAM 3D/2D: 06/20/2023 CLINICAL: Patient returns for 6 month follow up on left breast for calcifications. Comparison is made to exams dated: 10/21/2020 mammogram, 09/26/2019 mammogram, 08/22/2018 mammogram, and 11/28/2022 mammogram - [facility]. The left breast is heterogeneously dense, which may obscure small masses (category c / 51-75% glandular tissue). There are stable benign grouped punctate round calcifications in the left breast at 1 o'clock posterior depth. This correlates with surgery. Stable post-operative findings. No other significant masses or calcifications are seen in the breast. IMPRESSION: BENIGN There is no mammographic evidence of malignancy. Left breast 1:00 posterior calcifications demonstrate long-term stability and are benign. Recommend returning to screening mammogram schedule. Exam findings were conveyed to the patient. This exam was interpreted at Station ID: [id number]. NOTE: For mammograms, a report in lay terms will be sent to the patient. Approximately 15% of breast malignancies will not be visualized mammographically. In the management of a palpable breast mass, a negative mammogram must not discourage biopsy of a clinically suspicious lesion. Electronically Signed By: Singh Tao M.D. [facility] [place]:06/21/2023 15:01:28 Entry: - 06/21/2023 15:01:28 copy to: Tania Centeno letter sent: Normal Exam ACR BI-RADS Category 2: Benign Finding(s) 3342F
== END ==
PROVIDERS: PCP Family Medicine; Referring Provider Family Medicine; Visit Provider Family Medicine
DX: R92.8 Other abnormal and inconclusive findings on diagnostic imaging of breast (principal); R92.1 Mammographic calcification found on diagnostic imaging of breast
CPT/HCPCS: 77065; G0279

== ENCOUNTER → 2023-12-10 12:42 | Outpatient (CLI) | payer MEDICARE, OTHER, SELFPAY ==
--- NOTE | 2023-12-10 12:46 | DI.MG.S_ITS ---
BILATERAL DIGITAL SCREENING MAMMOGRAM 3D/2D WITH CAD: 12/10/2023 CLINICAL: Routine screening. Family history breast cancer. Comparison is made to exams dated: 06/20/2023 mammogram, 11/28/2022 mammogram, 10/21/2020 mammogram, and 09/26/2019 mammogram - [facility]. Both breasts are heterogeneously dense, which may obscure small masses (category c / 51-75% glandular tissue). Current study was also evaluated with a Computer Aided Detection (CAD) system. No significant masses, calcifications, or other findings are seen in either breast. There has been no significant interval change. IMPRESSION: NEGATIVE There is no mammographic evidence of malignancy. A 1 year screening mammogram is recommended. This exam was interpreted at Station ID: [id number]. NOTE: For mammograms, a report in lay terms will be sent to the patient. Approximately 15% of breast malignancies will not be visualized mammographically. In the management of a palpable breast mass, a negative mammogram must not discourage biopsy of a clinically suspicious lesion. Electronically Signed By: Fracisco qureshi/tad:12/10/2023 16:24:57 copy to: Tania Centeno letter sent: Normal Exam ACR BI-RADS Category 1: Negative 3341F
== END ==
PROVIDERS: PCP Family Medicine; Referring Provider Family Medicine; Visit Provider Family Medicine
DX: Z12.31 Encounter for screening mammogram for malignant neoplasm of breast (principal); Z80.3 Family history of malignant neoplasm of breast; R92.333 Mammographic heterogeneous density, bilateral breasts
CPT/HCPCS: 77063; 77067

== ENCOUNTER 2024-05-21 13:34 | Emergency (ER) | payer MEDICARE, OTHER, SELFPAY ==
[2024-05-21 13:43] VITALS: BP 183/86; PULSE 63; RESP 12; TEMP 36.4; O2SAT 96; BMI 35.6
--- NOTE | 2024-05-21 13:49 | DI.RAD.S_ITS ---
PROCEDURE: XR CHEST 1V INDICATIONS: chest pain TECHNIQUE: One view of the chest was acquired. COMPARISON: None. FINDINGS: In the left upper abdomen there is evidence of prior band gastroplasty procedure with linear tubing commonly related to insufflation device. Mild bibasilar subsegmental atelectasis some of which commonly related expiratory result. Mild atherosclerotic and ectatic changes of the thoracic aorta. Moderate degenerate changes of the thoracic spine and shoulders. No pneumothorax, no pleural effusion, no focal consolidation. Cardiomediastinal silhouette within normal limits. IMPRESSION: Mild bibasilar subsegmental atelectasis some of which commonly related expiratory result. Chronic changes as discussed above. If symptoms persist or worsen, or there is high clinical suspicion of thoracic abnormality, CT chest could be performed. Dictated by: Steve Mckay M.D. on 05/21/2024 at 15:20 Approved by: Steve Mckay M.D. on 05/21/2024 at 15:24
--- NOTE | 2024-05-21 13:51 | EKG_ITS ---
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
[2024-05-21 14:14] LABS: Add Manual Diff / Slide Review NO; Basophils Absolute Auto 0 /uL (0-100); Basophils Percent Auto 0.7 % (0-2); Eosinophils Absolute Auto 100 /uL (0-450); Hematocrit 45.5 % (36-46); Hemoglobin 15.4 g/dL (12.0-16.0); Lymphocytes Absolute Auto 1300 /uL (1100-4500); Lymphocytes Percent Auto 18.4 % (25-40); Mean Corpuscular HGB Conc 33.7 % (30-36); Mean Corpuscular Hemoglobin 29.4 PG (26-34); Mean Corpuscular Volume 87.3 fL (80-100); Monocytes Absolute Auto 600 /uL (0-900); Monocytes Percent Auto 8.3 % (3-14); Neutrophils Absolute Auto 4900 /uL (1500-7000); Neutrophils Percent Auto 71.6 % (50-75); Platelet Count 162 X10^3/uL (150-400); Red Blood Cell Count 5.21 X10^6/uL (4.0-5.2); White Blood Cell Count 6.8 X10^3/uL (4.5-11.0)
[2024-05-21 14:19] LABS: Prothrombin Time 11.7 SECONDS (9.4-12.5)
[2024-05-21 14:22] LABS: PTT Partial Thromboplastin Tim 31 SECONDS (25.1-36.5)
[2024-05-21 14:25] LABS: Alanine Aminotransferase 26 IU/L (<35); Albumin 4.1 g/dL (3.5-5.0); Albumin Globulin Ratio 1.5 (1.0-2.8); Alkaline Phosphatase 66 U/L (38-126); Aspartate Aminotransferase 26 IU/L (14-36); BUN Creatinine Ratio 19.8 (6-22); Bilirubin Total 0.5 mg/dL (0.2-1.3); Blood Urea Nitrogen 21 mg/dL (7-17); Calcium 9.4 mg/dL (8.4-10.2); Carbon Dioxide 28 mmol/L (22-32); Chloride 102 mmol/L (98-107); Creatine Kinase 44 U/L (30-135); Estimated Glomerular Filt Rate 53 mL/min (>60); Globulin 2.8 g/dL (1.7-4.1); Glucose 110 mg/dL (80-110); HEMOLYSIS < 15 (0-50); Lipase 90 U/L (23-300); Potassium 4.3 mmol/L (3.4-5.1); Sodium 136 mmol/L (137-145); Total Protein 6.9 g/dL (6.3-8.2)
[2024-05-21 14:39] LABS: NT-proBNP (BNP-Adult 18+) 487 pg/mL (<450); Troponin I < 0.012 ng/mL (0.01-0.034)
[2024-05-21 16:47] LABS: Troponin I < 0.012 ng/mL (0.01-0.034)
== END 2024-05-21 17:46 | disposition left against medical advice (07) ==
PROVIDERS: Emergency Provider Emergency Medicine; PCP Family Medicine
DX: R07.9 Chest pain, unspecified (principal); M54.9 Dorsalgia, unspecified; J98.11 Atelectasis
CPT/HCPCS: 36415; 71045; 80053; 82550; 83690; 83735; 83880; 84484; 85025; 85610; 85730; 93005; 99283

== ENCOUNTER → 2024-08-15 12:01 | Outpatient (CLI) | payer MEDICARE, OTHER, SELFPAY ==
--- NOTE | 2024-08-15 | DI.CT.S_ITS ---
PROCEDURE: CT HEAD/BRAIN WO CON INDICATIONS: Other specified forms of tremor TECHNIQUE: Noncontrast 4.5 mm thick angled axial sections acquired from the foramen magnum to the vertex, with coronal and sagittal reformats. For radiation dose reduction, the following was used: automated exposure control, adjustment of mA and/or kV according to patient size. COMPARISON: [facility], MR, MR HEAD/BRAIN WO CON, 12/25/2022, 15:49. FINDINGS: Image quality: Diagnostic. CSF spaces: Basal cisterns are patent. No extra-axial fluid collections. The ventricles are symmetric in size and shape. Brain: No intracranial bleeds or masses. There is cerebral volume loss for age, with resultant ventricular and sulcal prominence. There are prominent periventricular and deep white matter chronic small vessel ischemic changes as was also present on prior MR scanning from 12/25/22. There is intracranial internal carotid artery atherosclerosis. Skull and face: Calvarium and visualized facial bones appear intact, without suspicious lesions. Sinuses: Visualized sinuses and mastoids are clear. IMPRESSION: Relatively prominent but chronic microvascular atherosclerotic change in the deep white matter of each hemisphere. No acute disease is found, no intervening ischemic injury is seen and no mass lesion is present. Dictated by: Chava Ross M.D. on 08/15/2024 at 14:41 Approved by: Chava Ross M.D. on 08/15/2024 at 14:42
== END ==
PROVIDERS: PCP Family Medicine; Referring Provider Family Medicine; Visit Provider Family Medicine
DX: G25.2 Other specified forms of tremor (principal)
CPT/HCPCS: 70450

== ENCOUNTER → 2025-02-13 09:33 | Outpatient (CLI) | payer MEDICARE, OTHER, SELFPAY ==
--- NOTE | 2025-02-13 09:35 | DI.MG.S_ITS ---
MM screening mammo BI: 02/13/2025. BI-RADS: 2 CLINICAL: 79-year old female for bilateral screening mammogram. No Tyrer-Cuzick risk score calculation due to the patient's personal history of breast cancer. Patient reports a history of left breast carcinoma diagnosed at age 69. Status-post left lumpectomy with radiation therapy and hormonal therapy. Current reported family history of breast cancer: mother and daughter. The patient had prior bilateral breast biopsies. PRIOR EXAMS 12/10/2023, 06/20/2023, 11/28/2022, 10/21/2020. MAMMOGRAPHY TECHNIQUE: 2D and 3D (tomosynthesis) digital mammographic views obtained, with additional images as needed for full coverage. Current study was also evaluated with a Computer Aided Detection (CAD) system. DENSITY C. The breasts are heterogeneously dense, which may obscure small masses. MAMMOGRAPHY FINDINGS Right: Benign-appearing calcifications noted on the right. There are no suspicious masses, calcifications, or other findings in the breast. Left: Benign-appearing calcifications and post-surgical changes noted on the left. There are no suspicious masses, calcifications, or other findings in the breast. IMPRESSION: * No evidence of malignancy with benign findings. RECOMMENDATIONS Bilateral * Annual screening mammography. OVERALL ASSESSMENT CATEGORY BI-RADS-2: Benign. The [employer] recommends annual screening mammography beginning at age 40 for women with average risk of breast cancer. ELECTRONICALLY SIGNED: Fracisco Liu M.D. on 02/16/2025 at 03:28:31 PM PT Interpreting Station ID: [id number]
== END ==
LOC: MAMMO 09:34
PROVIDERS: PCP Family Medicine; Referring Provider Family Medicine; Visit Provider Family Medicine
DX: Z12.31 Encounter for screening mammogram for malignant neoplasm of breast (principal); Z85.3 Personal history of malignant neoplasm of breast; Z80.3 Family history of malignant neoplasm of breast; R92.333 Mammographic heterogeneous density, bilateral breasts
CPT/HCPCS: 77063; 77067